=== PATIENT | female | born 1945 | race Caucasian/White ===

== ENCOUNTER 2022-11-07 12:57 | Emergency (ER) | payer MEDICARE, BC, SELFPAY ==
[2022-11-07 13:07] VITALS: BP 122/88; PULSE 88; RESP 18; TEMP 36.4; O2SAT 91
--- NOTE | 2022-11-07 14:48 | ED_ITS ---
HPI - Anxiety General Date Seen: 11/07/22 Chief Complaint: Anxiety Stated Complaint: Heart issue Time Seen by Provider: 11/07/22 13:03 Source: patient Mode of arrival: ambulatory Limitations: no limitations History of Present Illness HPI narrative: Patient is a delightful 77-year-old female who was feeling like her heart rate was elevated called EMS, they said her heart rate was approximately 140, and they recommended that she come in to be seen she was not having chest pain shortness of breath or any other symptoms, by the time she got here she felt better, and was otherwise okay. She initially told me she thought her blood pressure is elevated but in actuality her blood pressure was fine and was her pulse that was elevated. She does have a history of anxiety is quite remorseful that she came in because of this. Denies any fevers chills or sweats chest pain shortness of breath leg swelling or any other symptoms such as syncope, she has no other history of psychiatric issues such as homicidal or suicidal ideation, she does admit though however she gets anxious and is a little bit grumpy with her who is brought her in. Related Data Home Medications Medication Instructions Recorded Confirmed amlodipine 5 mg tablet mg 11/07/22 hydroxyzine HCl 25 mg tablet mg 11/07/22 losartan 100 mg tablet mg 11/07/22 potassium chloride 10 mEq meq PO 11/07/22 tablet,extended release potassium chloride 10 mEq meq PO 11/07/22 tablet,extended release(part/cryst) Allergies Allergy/AdvReac Type Severity Reaction Status Date / Time No Known Drug Allergies Allergy Verified 11/07/22 13:12 Review of Systems Status of ROS: Reports: 10 or more systems reviewed and unremarkable except as noted in History and below Exam Narrative: Exam Narrative: On examination room 7 she is delightful she is in no apparent distress she is speaking to me normally, nontoxic, pupils are equal round reactive to light there is no scleral icterus redness TMs are normal oropharynx normal thyroid is normal midline palpable not enlarged her neck is supple full range of motion with no meningismus her chest is good air entry bilaterally with no wheezing crackles noted heart sounds no clicks murmurs or gallops, she has a slightly prolonged expiratory phase noted. Abdomen is soft and scaphoid there is no guarding no organomegaly she moves all extremities independently well with absence of edema swelling. Const: Vital Signs, click to edit/add: Vital Signs - 24 hr 11/07/22 13:07 Temperature 97.5 F L Pulse Rate [Right Pulse Oximeter] 88 Respiratory Rate 18 Blood Pressure [Ri ght Upper Arm] 122/88 Pulse Oximetry 91 Oxygen Delivery Me thod Room Air Course Vital Signs Vital signs: Initial Vital Signs Temperature 97.5 F L 11/07/22 13:07 Temperature Source Temporal Artery Scan 11/07/22 13:07 Pulse Rate 88 11/07/22 13:07 Respiratory Rate 18 11/07/22 13:07 Blood Pressure 122/88 11/07/22 13:07 Blood Pressure Mean 99 11/07/22 13:07 Blood Pressure Position Sitting 11/07/22 13:07 Pulse Oximetry 91 11/07/22 13:07 Oxygen Delivery Method 11/07/22 13:07 Vital Signs Temperature 97.5 F L 11/07/22 13:07 Pulse Rate 88 11/07/22 13:07 Respiratory Rate 18 11/07/22 13:07 Blood Pressure 122/88 11/07/22 13:07 Pulse Oximetry 91 11/07/22 13:07 Oxygen Delivery Method 11/07/22 13:07 Temperature 97.5 F L 11/07/22 13:07 Pulse Rate 88 11/07/22 13:07 Respiratory Rate 18 11/07/22 13:07 Blood Pressure 122/88 11/07/22 13:07 Pulse Oximetry 91 11/07/22 13:07 Oxygen Delivery Method 11/07/22 13:07 MDM - Anxiety MDM Narrative Medical decision making narrative: During this examination considered multiple diagnosis included myocardial infarction syncope, dysrhythmia, hypertension, both malignant and essential, pulmonary embolus, aortic dissection among other causes, given her status, and her exam normal examination, I think this is more likely anxiety and she is in agreement. Medical Records Attestation: I reviewed the patient's medical records. ECG Data Attestation: I personally reviewed and interpreted this ECG as follows: ECG interpretation date: 11/07/22 Interpretation: EKG shows normal sinus rhythm poor R-wave progression, no ST wave changes. Discharge Plan Discharge Clinical Impression: Tobacco use disorder, Acute anxiety Patient Disposition: Home w/ Parent or Adult Condition: Stable Instructions: Anxiety (ED) Additional Instructions: Home rest follow-up with primary care, discussed with patient smoking cessation also. Return as need Prescriptions: No Action potassium chloride 10 mEq tablet extended release PO amlodipine 5 mg tablet hydroxyzine HCl 25 mg tablet losartan 100 mg tablet Label Comments: TAKE ONE TABLET BY MOUTH ONE TIME DAILY potassium chloride 10 mEq tablet,ER particles/crystals PO Label Comments: Take 1 Tablet (10 mEq) by mouth once daily with a meal. Follow Up/Referrals: Eve Loja PA-C [Primary Care Provider] - Stand Alone Forms: [employer] Info Instructions
== END 2022-11-07 14:00 | disposition home or self-care (01) ==
PROVIDERS: Emergency Provider Family Medicine; PCP Physician Assistant Medical
DX: F41.9 Anxiety disorder, unspecified (principal); Z72.0 Tobacco use
CPT/HCPCS: 99283; 99284

== ENCOUNTER 2025-09-21 20:06 | Outpatient (CLI) | payer MEDICARE, BC, SELFPAY | END 2025-09-21 20:07 | disposition home or self-care (01) | LOC: AMB 09-23 21:01 | PROVIDERS: PCP Physician Assistant Medical; Visit Provider Family Medicine | DX: S79.912A Unspecified injury of left hip, initial encounter (principal); W19.XXXA Unspecified fall, initial encounter; Y92.039 Unspecified place in apartment as the place of occurrence of the external cause | CPT/HCPCS: A0425; A0427 ==